=== PATIENT | female | born 1965 | race Caucasian/White ===

== ENCOUNTER 2017-07-28 14:01 | Outpatient (CLI) | payer MEDICARE ==
[2016-02-13 17:12] VITALS: BP 133/86
[2017-07-28 14:18] LABS: BASOPHILS % 1.1 (0.0-1.5); EOSINOPHILS % 4.1 % (0.0-6.8); MEAN CORPUSCULAR HEMOGLOBIN 28.7 pg (28.0-34.0); NEUTROPHILS # 3.7 # k/uL (1.4-7.7)
[2017-07-28 14:50] LABS: eGFR (African) > 60; eGFR (Non-African) > 60
== END 2017-07-28 14:03 ==
LOC: LAB 14:01
PROVIDERS: ATTEND Family Medicine
DX: R10.84 Generalized abdominal pain (principal)
CPT/HCPCS: 36415; 80053; 85025

== ENCOUNTER 2017-12-20 10:15 | Outpatient (CLI) | payer MEDICARE ==
[2016-02-13 17:12] VITALS: BP 133/86
--- NOTE | 2017-12-20 11:46 | Diagnostic Imaging Report ---
ALEJANDRA SHAY [facility] [address] [facility] [address] [address] Report Submission Date: Dec 20, 2017 11:33:15 AM CDT Patient Study Name: MARY BETH IRENE Date: Dec 20, 2017 11:01:46 AM CDT Modality Type: DX Gender: F Description: SPINE : 61 Institution: [facility] Physician: ALEJANDRA SHAY Examination: Plain film lumbar spine History: LOW BACK PAIN (Hx) Findings: 3 views of the lumbar spine demonstrate normal height. No anterior compression. Lower facet degenerative changes. No soft tissue abnormalities. Impression: Degenerative changes. No compression deformity. If patient is experiencing neurologic symptoms, consider obtaining MRI to further evaluate. Electronically signed on Dec 20, 2017 11:33:15 AM CDT by: Mundo BAZAN
== END 2017-12-20 10:16 ==
LOC: LAB 10:15
PROVIDERS: ATTEND Family Medicine
DX: M54.42 Lumbago with sciatica, left side (principal); R10.2 Pelvic and perineal pain
CPT/HCPCS: 72100; 87086

== ENCOUNTER 2017-12-24 18:51 | Emergency (ER) | payer MEDICARE ==
[2017-12-24] MEDS ORDERED: AMOXICILLIN 500 MG CAPSULE PO ONE (19:20)
[2017-12-24 19:25] VITALS: BP 141/79
--- NOTE | 2017-12-24 19:32 | ED Physician Documentation ---
General Adult - HISTORIAN Historian: patient - HPI Stated Complaint: sore throat Chief Complaint: General Adult Additional Information: Sore throat since12/20. Occasional cough. No CASTELAN or nausea. "low grade temp." Worst sore throat she has ever had. - ROS CONST: fever - PAST HX Past History: other (MS) Allergies/Adverse Reactions: Allergies Allergy/AdvReac Type Severity Reaction Status Date / Time azithromycin AdvReac Unknown Diarrhea Verified 12/24/17 19:06 epinephrine AdvReac Unknown No Reaction Verified 12/24/17 19:06 Home Medications: Ambulatory Orders Medication Instructions Recorded Aspirin 81 mg PO DAILY 11/12/12 Sertraline HCl 50 mg PO DAILY 11/12/12 Gabapentin [Gabapentin] 600 mg PO DAILY 07/30/13 Omega3/Dha/Epa/Fish Oil/Vit D3 1 tab PO DAILY 07/30/13 [Fish Oil + Vitamin D-3 Softgel] Baclofen [Baclofen] 20 mg PO HS 11/18/15 Cholecalciferol (Vitamin D3) 2,000 unit PO DAILY av 02/10/17 [Vitamin D3] Coconut Oil 1,000 mg PO DAILY av 02/10/17 Levothyroxine Sodium 175 mcg PO DAILY u2 02/10/17 - SOCIAL HX Smoking History: non-smoker - FAMILY HX Family History: No - VITAL SIGNS Vital Signs: Vital Signs Temp Pulse Resp BP Pulse Ox 98.6 F 79 16 141/79 95 12/24/17 18:51 12/24/17 18:51 12/24/17 18:51 12/24/17 18:51 12/24/17 18:51 - REVIEWED ASSESSMENTS Nursing Assessment Reviewed: Yes Vitals Reviewed: Yes ED Results Lab/Radiology - Orders Orders: ED Orders Category Date Time Status Rapid Strep [GRP A STREP SCREEN] Stat Lab 12/24/17 Ordered Amoxicillin [Amoxil] Med 12/24/17 19:20 Discontinued 500 mg PO NOW ONE General Adult Physical Exam - PHYSICAL EXAM GENERAL APPEARANCE: mild distress EENT: eye inspection normal, TM's nml, pharyngeal erythema (slight exudate) NECK: normal inspection, other (tender to palpatio, L ant cerv lymphadenopathy) RESPIRATORY: no resp distress, breath sounds normal CVS: reg rate & rhythm BACK: normal inspection SKIN: warm/dry, normal color EXTREMITIES: normal range of motion (gair and stance) NEURO: CN's nml as tested, motor nml, sensation nml, cognition normal Discharge Clincal Impression: Sore throat Referrals: Salud Oconnell MD [Primary Care Provider] - 2 Days Condition: Fair Disposition: 01 HOME, SELF-CARE Decision to Admit: NO Decision Time: 19:30
== END 2017-12-24 19:30 | disposition home or self-care (01) ==
LOC: ED 18:51
DX: J02.9 Acute pharyngitis, unspecified (principal)
CPT/HCPCS: 87070; 87880; 99282

== ENCOUNTER 2018-08-11 05:05 | Inpatient (IN) | payer MEDICARE ==
[2018-08-11] MEDS ORDERED: ONDANSETRON HCL 4 MG TAB.RAPDIS PO ONE (05:58)
--- NOTE | 2018-08-11 05:59 | ED Physician Documentation ---
Abdominal Pain - HISTORIAN Historian: patient - HPI Stated Complaint: abd pain nausea Chief Complaint: Abdominal Pain Additonal Information: Patient presents with a 1 week history of epigastric pain and bloating. She states the pain increased through the night, migrating to included LLQ with associated nausea. Patient states she has had regular bowel movement with her last yesterday. She has MS and has been on a steroid taper. Patient states she normally get bloated with steroids, however, never has abdominal pain. She denies fever, chills, vomiting, blood in stools, chest pain or shortness of breath. Onset: days ago (10) Duration: constant Context: denies: out of country travel, bad food, recent trauma Severity: mild Quality: pain (01/10), aching, dull, cramping, sharp, stabbing, fullness Associated Symptoms: nausea. denies: fever, chills, vomiting, diarrhea, bloody stools, sweating Relieved by: supine - ROS CONST: no problems GI/: none. denies: problems urinating CVS/RESP: none EYES/ENT: none MS/SKIN/LYMPH: none NEURO/PSYCH: none - SOCIAL HX Smoking History: non-smoker Alcohol Use: none Drug Use: none - FAMILY HX Family History: none - PAST HX Past History: none Ischemic Bowel Risk Factors: none Other History: none, other (multiple sclerosis) Surgeries/Procedures: cholecystectomy, hysterectomy, cardiac stent Home Medications: Ambulatory Orders Medication Instructions Recorded Aspirin 81 mg PO DAILY 11/12/12 Sertraline HCl 50 mg PO DAILY 11/12/12 Gabapentin 600 mg PO BID 07/30/13 Omega3/Dha/Epa/Fish Oil/Vit D3 1 tab PO DAILY 07/30/13 [Fish Oil + Vitamin D-3 Softgel] Baclofen 20 mg PO HS 11/18/15 Levothyroxine Sodium 175 mcg PO DAILY u2 02/10/17 Baclofen 10 mg PO D 08/11/18 Cholecalciferol [Vitamin D-3] 1,000 mg PO D 08/11/18 Ranitidine HCl [Heartburn Relief] 150 mg PO BID 08/11/18 Allergies/Adverse Reactions: Allergies Allergy/AdvReac Type Severity Reaction Status Date / Time azithromycin AdvReac Unknown Diarrhea Verified 08/11/18 06:26 epinephrine AdvReac Unknown No Reaction Verified 08/11/18 06:26 - VITAL SIGNS Vital Signs: Vital Signs Temp Pulse Resp BP Pulse Ox 97.8 F 67 18 135/77 97 08/11/18 05:10 08/11/18 05:10 08/11/18 05:10 08/11/18 05:10 08/11/18 05:10 - REVIEWED ASSESSMENTS Nursing Assessment Reviewed: Yes Vitals Reviewed: Yes ED Results Lab/Radiology - Lab Results Lab Results: Lab Results 08/11/18 08/11/18 08/11/18 06:01 06:01 06:01 WBC 14.60 K/ul H K/ul (4.00-12.00) RBC 4.71 M/ul M/ul (3.90-5.20) Hgb 12.9 g/dL g/dL (12.0-16.0) Hct 40.3 % % (34.5-46.5) MCV 86.0 fl fl (80.0-100.0) MCH 27.3 pg L pg (28.0-34.0) MCHC 31.9 g/dL g/dL (30.0-36.0) RDW 13.6 % % (11.3-14.3) Plt Count 248 K/mm3 K/mm3 (130-400) Neut % (Auto) 76.4 % % (39.0-79.0) Lymph % (Auto) 15.1 % L % (16.0-50.0) [place] % (Auto) 6.6 % % (0.0-11.0) Eos % (Auto) 1.4 % % (0.0-6.8) Baso % (Auto) 0.5 (0.0-1.5) Neut # (Auto) 11.2 # k/uL H # k/uL (1.4-7.7) Lymph # (Auto) 2.2 # k/uL # k/uL (0.6-4.0) [place] # (Auto) 1.0 # k/uL H # k/uL (0.0-0.9) Eos # (Auto) 0.2 # k/uL # k/uL (0.0-0.6) Baso # (Auto) 0.1 # k/uL # k/uL (0.0-0.5) Sodium 141 mmol/L mmol/L (136-145) Potassium 4.0 mmol/L mmol/L (3.5-5.1) Chloride 104 mmol/L mmol/L (98-107) Carbon Dioxide 30 mmol/L mmol/L (22-30) BUN 28 mg/dL H mg/dL (7-17) Creatinine 0.70 mg/dL mg/dL (0.52-1.04) Estimated Creat Clear 145 Est GFR ( Amer) > 60 (60 - ) Est GFR (Non-Af Amer) > 60 (60 - ) Glucose 85 mg/dL mg/dL (74-106) Calcium 8.2 mg/dL L mg/dL (8.4-10.2) Total Bilirubin 0.2 mg/dL mg/dL (0.2-1.3) AST 17 U/L U/L (15-46) ALT 84 U/L H U/L (13-69) Alkaline Phosphatase 64 U/L U/L (38-126) Total Protein 6.3 g/dL g/dL (6.3-8.2) Albumin 3.3 g/dL L g/dL (3.5-5.0) Lipase 505 U/L H U/L (23-300) UA negative for infection. - Radiology Radiology Impressions: CT abdomen and pelvis with contrast Date of study: August 11, 2018 CLINICAL HISTORY: DIFFUSE ABD PAIN X1 WEEK, NAUSEA (Hx) / ITS.REASON epigastric, LLQ pain Note time : 08/11/2018 7:48:24 AM User : Bianka Negrete DIFFUSE ABD PAIN X1 WEEK, NAUSEA (DICOM Hx) TECHNIQUE: 5 mm contiguous axial images of the abdomen and pelvis with IV contrast. With; 94mL's Omni 350 FINDINGS: Fatty change in the liver. Appendix congestion is present in the lungs. The heart is enlarged. The spleen shows a 1.8 cm hypodensity possibly a small infarct.. There is no adrenal or pancreas lesion. The kidneys enhance normally. The aorta is not dilated. There is a normal appendix. The uterus has been removed. The bladder is unremarkable. There is aortoiliac vascular calcification. The celiac axis stenosis is present. 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 Electronically signed on Aug 11, 2018 7:07:08 AM AUTOMATION DESIGN ENGINEER by: Brennon Lott - Orders Orders: ED Orders Category Date Time Status Place IV Lock 1T Care 08/11/18 05:[address] ABD & PELVIS W/ CON Stat Exams 08/11/18 06:30 Completed CBC/PLATELET/DIFF Routine Lab 08/11/18 06:01 Completed CMP Routine Lab 08/11/18 06:01 Completed LIPASE Stat Lab 08/11/18 06:01 Completed 0.9 % Sodium Chloride [Normal Saline] 1,000 ml Med 08/11/18 07:30 Ordered IV Q10H Ondansetron HCl Rapdis [Zofran Odt] Med 08/11/18 05:58 Discontinued 4 mg PO NOW ONE Ondansetron HCl/Pf [Zofran 4 mg/2 ml] Med 08/11/18 06:09 Discontinued 4 mg IVP NOW ONE Abdominal Pain Physical Exam - Physical Exam General Appearance: no acute distress, alert EENT: APLLAVI NECK: supple RESPIRATORY: no resp distress, breath sounds normal CVS: reg rate & rhythm, heart sounds normal ABDOMEN: soft, tenderness (epigastric, LLQ), distended RECTAL: deferred SKIN: warm/dry, normal color EXTREMITIES: no edema NEURO: oriented X3 Vital Signs: Vital Signs Temp Pulse Resp BP Pulse Ox 97.8 F 67 18 135/77 97 08/11/18 05:10 08/11/18 05:10 08/11/18 05:10 08/11/18 05:10 08/11/18 05:10 Discharge Clincal Impression: Acute pancreatitis Qualifiers: Pancreatitis type: drug induced Acute pancreatitis complication: no infection or necrosis Qualified Code(s): K85.30 - Drug induced acute pancreatitis without necrosis or infection Disposition: ADMITTED INPATIENT Decision to Admit: [id number] Date of Decison to Admit: 08/11/18 Decision Time: 07:14
[2018-08-11 06:09] LABS: MEAN CORPUSCULAR HEMOGLOBIN 27.3 pg (28.0-34.0)
[2018-08-11] MEDS ORDERED: ONDANSETRON HCL/PF 4 MG/ 2ML VIAL IVP ONE (06:09)
[2018-08-11 06:26] LABS: eGFR (Non-African) > 60
--- NOTE | 2018-08-11 07:19 | Diagnostic Imaging Report ---
KIT BARRETT [facility] [address] [facility] [address] [place], [place]. [address] Report Submission Date: Aug 11, 2018 7:07:08 AM BILINGUAL CUSTOMER SERVICE SPECIALIST Patient Study Name: MARY BETH IRENE Date: Aug 11, 2018 6:37:05 AM BILINGUAL CUSTOMER SERVICE SPECIALIST Modality Type: CT\SR Gender: F Description: CT ABD PELVIS W/ CON : 61 Institution: [facility] Physician: KIT BARRETT CT abdomen and pelvis with contrast Date of study: August 11, 2018 CLINICAL HISTORY: DIFFUSE ABD PAIN X1 WEEK, NAUSEA (Hx) / ITS.REASON epigastric, LLQ pain Note time : 08/11/2018 7:48:24 AM User : Bianka Negrete DIFFUSE ABD PAIN X1 WEEK, NAUSEA (DICOM Hx) TECHNIQUE: 5 mm contiguous axial images of the abdomen and pelvis with IV contrast. With; 94mL's Omni 350 FINDINGS: Fatty change in the liver. Appendix congestion is present in the lungs. The heart is enlarged. The spleen shows a 1.8 cm hypodensity possibly a small infarct.. There is no adrenal or pancreas lesion. The kidneys enhance normally. The aorta is not dilated. There is a normal appendix. The uterus has been removed. The bladder is unremarkable. There is aortoiliac vascular calcification. The celiac axis stenosis is present. 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
[2018-08-11] MEDS ORDERED: MORPHINE SULFATE 4 MG/ML PREFILLED SYR IVP PRN (07:50)
[2018-08-11] MEDS ORDERED: ONDANSETRON HCL/PF 4 MG/ 2ML VIAL IVP PRN (07:50)
[2018-08-11] MEDS ORDERED: BISACODYL 5 MG TABLET.DR PO PRN (07:51)
[2018-08-11] MEDS ORDERED: DOCUSATE SODIUM 100 MG CAPSULE PO PRN (07:51)
[2018-08-11] MEDS ORDERED: MAG HYDROX/ALUMINUM HYD/SIMETH 30 ML UDC PO PRN (07:53)
[2018-08-11] MEDS ORDERED: ACETAMINOPHEN 500 MG TABLET PO PRN (07:53)
[2018-08-11 08:36] LABS: BASOPHILS % 0 % (0-2); EOSINOPHILS % 0 % (0-7); MONOCYTES % 4 % (0-11); SEGMENTED NEUTROPHILS % 69 % (39-79)
--- NOTE | 2018-08-11 08:36 | History and Physical Report ---
History of Present Illnes - History of Present Illness Reason for Visit: Pancreatitis History of Present Illness: 53 year old female presented to the ER for abdominal pain. She states she has been feeling bloated and having some mild upper abdominal pain for the last 2 weeks. She states in the last 2 days the pain has become more severe. She sates she has been having a lot of nausea but has not eaten. She denies any constipation. She does not believe she has had a fever. She has not been able to eat for the last couple of days. She has been trying to drink fluids but they area also making her feels sick. She notes a history of MS and is currently on a prednisone taper for her MS symptoms. She states she has had some bloating when she has been on the steroids in the past but has never had abdominal pl pain with it. She states she has been feeling well otherwise and denies any s ore throat, runny nose, chest pain, shortness of breath, or other concerns today. In the ER she was found to have an elevated lipase of 505 and an elevated WBC count of 14.5. She was admitted to the floor for IV fluids and pain medication. - Past Medical History Cardiac: CAD RUBBER FACTORY WORKER: Peripheral neuropathy, Other (MS) - Past Surgical History Past Surgical History: Cholecystectomy, Hysterectomy, Other (cervical fusion, cardiac stenting, right knee surgery, melanoma inner thigh) - Past Social History Smoke: No Alcohol: Rare Lives: With Family () - Health Maintenance Health Maintenance: denies: Influenza Vaccine, Pneumococcal Vaccine Influenza Vaccine: No (Patient declines) Pneumonia Vaccine: No Resuscitation Status: Resusciation Status Resuscitation Status Full Code Review of Systems - Review of Systems Constitutional: Malaise. negative: Fever Eyes: negative: pain, vision change ENT: negative: Ear Pain, Nose Pain, Nose Discharge, Nose Congestion, Mouth Pain, Throat Pain Respiratory: negative: Cough, Dry, Shortness of Breath Cardiovascular: negative: Chest Pain Gastrointestinal: Nausea, Abdominal Pain Genitourinary: negative: Dysuria Musculoskeletal: negative: Shoulder Pain, Arm Pain, Back Pain Skin: negative: Rash Neurological: Other (Melanoma) - Medications/Allergies Allergies/Adverse Reactions: Allergies Allergy/AdvReac Type Severity Reaction Status Date / Time azithromycin AdvReac Unknown Diarrhea Verified 08/11/18 06:26 epinephrine AdvReac Unknown No Reaction Verified 08/11/18 06:26 Home Medications: Home Medications Baclofen 10 mg PO D 11/09/18 Cholecalciferol [Vitamin D-3] 1,000 mg PO D 08/11/18 Ranitidine HCl [Heartburn Relief] 150 mg PO BID 08/11/18 Current Inpatient Medications: Current Inpatient Medications Acetaminophen (Tylenol Extra Strength) 500 mg PO TID PRN PRN Reason: Fever >101 Aspirin (Aspirin) 81 mg PO DAILY [facility] Baclofen (Lioresal) 10 mg PO D [facility]AE Baclofen (Lioresal) 20 mg PO HS [facility] Bisacodyl (Dulcolax) 5 mg PO DAILY PRN PRN Reason: Constipation Cholecalciferol (Vitamin D-3) unit PO D [facility] Docusate Sodium (Colace) 200 mg PO DAILY PRN PRN Reason: Constipation Enoxaparin Sodium (Lovenox) 30 mg SQ QD [facility] Stop: 08/24/18 08:01 Famotidine (Pepcid) 20 mg PO BID [facility] Gabapentin (Neurontin) 600 mg PO BID [facility] Sodium Chloride (Normal Saline) 1,000 mls @ 100 mls/hr IV Q10H [facility] Levothyroxine Sodium (Synthroid) 175 mcg PO 0700 [facility] Morphine Sulfate (Depodur) 4 mg IVP Q6 PRN PRN Reason: Severe Pain Ondansetron HCl (Zofran 4 Mg/2 Ml) 4 mg IVP Q6H PRN PRN Reason: Nausea / Vomiting Sertraline HCl (Zoloft) 50 mg PO DAILY [facility] Simethicone (Gas-X) 80 mg PO TID [facility] Exam - Exam Vital Signs: Vital Signs (72 hours) 08/11/18 05:10 Temperature 97.8 F Pulse Rate [ 67 Pulse ox] Respiratory 18 Rate Blood Pressure 135/77 [Left Arm] O2 Sat by Pulse 97 Oximetry General: Alert, Oriented to Person, Oriented to Place, Oriented to Time, Cooperative, Mild distress, Obese HEENT: Atraumatic, EOMI, Mouth Mucous membr. moist/[place] Neck: Normal Range of Motion Lungs: Clear to auscultation, Normal air movement, Speaks full Sentences Cardiovascular: Regular rate, No murmurs Abdomen: Soft, Hyperactive Bowel Sounds. No: No tenderness (Generalized tenderness worse in epigastrum) Integumentary: Normal, [place], Warm, Dry Extremities: No edema, No tenderness/swelling Neurological: Normal gait, Normal speech Psych/Mental Status: Mental status NL, Mood NL, Appropriate Affect, Intact Judgment - Laboratory Results Laboratory Results: Laboratory Results 08/11/18 08/11/18 08/11/18 06:01 06:01 06:01 WBC 14.60 H RBC 4.71 Hgb 12.9 Hct 40.3 MCV 86.0 MCH 27.3 L MCHC 31.9 RDW 13.6 Plt Count 248 Neut % (Auto) 76.4 Lymph % (Auto) 15.1 L [place] % (Auto) 6.6 Eos % (Auto) 1.4 Baso % (Auto) 0.5 Neut # (Auto) 11.2 H Lymph # (Auto) 2.2 [place] # (Auto) 1.0 H Eos # (Auto) 0.2 Baso # (Auto) 0.1 Sodium 141 Potassium 4.0 Chloride 104 Carbon Dioxide 30 BUN 28 H Creatinine 0.70 Estimated Creat Clear 145 Est GFR ( Amer) > 60 Est GFR (Non-Af Amer) > 60 Glucose 85 Calcium 8.2 L Total Bilirubin 0.2 AST 17 ALT 84 H Alkaline Phosphatase 64 Total Protein 6.3 Albumin 3.3 L Lipase 505 H Assessment/Plan - Assessment/Plan (1) Acute pancreatitis Status: Acute Current Visit: Yes Qualifiers: Qualified Code(s): K85.30 - Drug induced acute pancreatitis without necrosis or infection Assessment: Lipase elevated at 505. WBC count elevated at 14.9. Patient reports abdominal pain, bloating, nausea, and malaise. Abdomen has generalized tenderness with extreme tenderness to palpation of the epigastrum. Patient is afebrile. She states she has not eaten today. Plan: Patient will remain NPO. IV fluids started. IV pain medication ordered. Will monitor labs in the morning. VTE Assessment - RISK FACTOR SCORE VTE RISK FACTOR SCORES: AGE 40-60 YEARS, ACUTE INFECTION OTHER THEN SEPSIS - RISK VTE MODERATE RISK: SCORE OF 2 (RISK PROXIMAL DVT 2-4%) PROPHYAXIS NEEDED
[2018-08-11 08:37] LABS: HYPERSEGMENTED NEUTROPHILS PRESENT; SMUDGE CELLS 2 #PER 100 (0-0)
[2018-08-11] MEDS ORDERED: GABAPENTIN 300 MG CAPSULE PO SCH (09:00)
[2018-08-11] MEDS ORDERED: BACLOFEN 10 MG TABLET PO SCH (09:00)
[2018-08-11] MEDS ORDERED: ASPIRIN EC 81 MG TABLET.DR ONE (10:21)
[2018-08-11] MEDS: HYDROcodone /APAP 5/325 1 EACH TABLET PO PRN ×3 (10:34→20:47)
[2018-08-11] MEDS: SIMETHICONE 80 MG TAB.CHEW PO SCH ×3 (10:34→18:15)
[2018-08-11] MEDS: SERTRALINE HCL 50 MG TABLET PO SCH (10:34)
[2018-08-11] MEDS: ENOXAPARIN SODIUM 30 MG/0.3 ML DISP.SYRIN SQ SCH (10:34)
[2018-08-11 10:35] VITALS: BMI 35.1
[2018-08-11] MEDS: ASPIRIN 81 MG CHEW TAB PO SCH (10:35)
[2018-08-11] MEDS: FAMOTIDINE 20 MG TABLET PO SCH ×2 (10:35→20:47)
[2018-08-11] MEDS: 0.9 % SODIUM CHLORIDE 1,000 ML IV SCH ×2 (10:46→18:16)
[2018-08-11 14:01] LABS: APPEARANCE,URINE CLEAR (CLEAR); COLOR,URINE YELLOW (YELLOW); OCCULT BLOOD,URINE NEGATIVE (NEGATIVE)
[2018-08-11 14:02] LABS: UROBILINOGEN URINE 0.2 Eu (0.2-1.0)
[2018-08-11] MEDS: CHOLECALCIFEROL (VIT D3) 1,000 UNIT TABLET PO SCH (14:08)
[2018-08-11] MEDS: BACLOFEN 10 MG TABLET PO SCH (20:47)
[2018-08-11] MEDS: GABAPENTIN 300 MG CAPSULE PO SCH (20:47)
[2018-08-11] MEDS ORDERED: LEVOTHYROXINE SODIUM 50 MCG TABLET ONE (21:29)
[2018-08-11] MEDS ORDERED: LEVOTHYROXINE SODIUM 50 MCG TABLET PO SCH (23:00)
[2018-08-12] MEDS: 0.9 % SODIUM CHLORIDE 1,000 ML IV SCH ×2 (03:45→13:55)
[2018-08-12] MEDS: HYDROcodone /APAP 5/325 1 EACH TABLET PO PRN ×2 (03:45→20:16)
[2018-08-12] MEDS: LEVOTHYROXINE SODIUM 50 MCG TABLET PO SCH (06:47)
[2018-08-12] MEDS ORDERED: LEVOTHYROXINE SODIUM 100 MCG TABLET PO SCH (07:00)
[2018-08-12 07:35] LABS: BASOPHILS % 0.4 (0.0-1.5); MEAN CORPUSCULAR HEMOGLOBIN 27.3 pg (28.0-34.0); MONOCYTES % 4.3 % (0.0-11.0); NEUTROPHILS # 7.5 # k/uL (1.4-7.7)
[2018-08-12 07:36] LABS: eGFR (Non-African) > 60
[2018-08-12] MEDS: ENOXAPARIN SODIUM 30 MG/0.3 ML DISP.SYRIN SQ SCH (08:05)
[2018-08-12] MEDS: ASPIRIN 81 MG CHEW TAB PO SCH (08:05)
[2018-08-12] MEDS: SIMETHICONE 80 MG TAB.CHEW PO SCH ×3 (08:05→17:10)
[2018-08-12] MEDS: SERTRALINE HCL 50 MG TABLET PO SCH (08:06)
[2018-08-12] MEDS: CHOLECALCIFEROL (VIT D3) 1,000 UNIT TABLET PO SCH (08:06)
[2018-08-12] MEDS: FAMOTIDINE 20 MG TABLET PO SCH ×2 (08:08→20:16)
--- NOTE | 2018-08-12 11:43 | Inpatient Progress Note ---
Subjective - Required Recertification Statement I anticipate X number of days because-include discharge plan: 2 - Review of Systems Events since last encounter: The patient was admitted to the floor. She was kept NPO since admission. She was started on IV fluids for mild dehydration. She states she is feeling a lot better. She notes she is still having some mild intermittent nausea but reports it has improved significantly. She states her abdominal pain has improved a lot as well. She states she her abdomen is still sore to push on but when she is just sitting there her pain is a 1-2. She states she has not needed the IV medication as much today and states the PO med is helping for the most part. She states she is feeling a little more hungry and would like to try to advance her diet. She denies any new symptoms. She denies any chest pain, shortness of breath, fever, chills, nausea, vomiting, or other concerns today. General: Fatigue. Denies: Chills HEENT: Denies: Head Aches, Visual Changes Pulmonary: Denies: Dyspnea, Cough Cardiovascular: Denies: Chest Pain, Palpitations Gastrointestinal: Nausea (mild), Abdominal Pain (mild - much improved). Denies: Vomiting, Diarrhea, Constipation Genitourinary: Denies: Dysuria Musculoskeletal: Denies: Back Pain, Leg Pain Neurological: Denies: Weakness, Change in Speech Objective - Exam Vitals and I&O: Vital Signs Temp 97.7 F 08/12/18 09:45 Pulse 51 L 08/12/18 09:45 Resp 16 08/12/18 09:45 BP 108/57 08/12/18 09:45 Pulse Ox 94 08/12/18 09:45 Intake & Output 08/11/18 08/11/18 08/12/18 11:59 23:59 11:59 Intake Total 300 2640 1820 Balance 300 2640 1820 Weight 87.09 kg 86.183 kg Intake: IV 300 2600 1800 Right Antecubital 300 2600 1800 Oral 40 20 Other: # Voids 1 2 General: Alert, Oriented to Person, Oriented to Place, Oriented to Time, Cooperative, Obese HEENT: Atraumatic, EOMI Neck: Supple Lungs: Clear to auscultation, Normal air movement, Speaks full Sentences. No: Wheezes, Rhonchi Cardiovascular: Regular rate, No murmurs Abdomen: Normal bowel sounds, Soft. No: No tenderness (Epigastric and LUQ tenderness) Extremities: No edema, No tenderness/swelling Skin: Normal Neurological: Normal gait, Normal speech, Strength Equal Bilat, Normal tone, Sensation intact Psych/Mental Status: Mental status NL, Mood NL, Appropriate Affect, Intact Judgment - Results Results: Laboratory Results WBC 10.70 K/ul (4.00-12.00) 08/12/18 05:00 RBC 4.29 M/ul (3.90-5.20) 08/12/18 05:00 Hgb 11.7 g/dL (12.0-16.0) L 08/12/18 05:00 Hct 36.5 % (34.5-46.5) 08/12/18 05:00 MCV 85.0 fl (80.0-100.0) 08/12/18 05:00 MCH 27.3 pg (28.0-34.0) L 08/12/18 05:00 MCHC 32.1 g/dL (30.0-36.0) 08/12/18 05:00 RDW 13.8 % (11.3-14.3) 08/12/18 05:00 Plt Count 232 K/mm3 (130-400) 08/12/18 05:00 Neut % (Auto) 69.7 % (39.0-79.0) 08/12/18 05:00 Lymph % (Auto) 21.6 % (16.0-50.0) 08/12/18 05:00 Lane % (Auto) 4.3 % (0.0-11.0) 08/12/18 05:00 Eos % (Auto) 4.0 % (0.0-6.8) 08/12/18 05:00 Baso % (Auto) 0.4 (0.0-1.5) 08/12/18 05:00 Neut # (Auto) 7.5 # k/uL (1.4-7.7) 08/12/18 05:00 Lymph # (Auto) 2.3 # k/uL (0.6-4.0) 08/12/18 05:00 Lane # (Auto) 0.5 # k/uL (0.0-0.9) 08/12/18 05:00 Eos # (Auto) 0.4 # k/uL (0.0-0.6) 08/12/18 05:00 Baso # (Auto) 0.0 # k/uL (0.0-0.5) 08/12/18 05:00 Seg Neutrophils % 69 % (39-79) 08/11/18 06:01 Band Neutrophils % 1 % (0-12) 08/11/18 06:01 Lymphocytes % 14 % (16-50) L 08/11/18 06:01 Monocytes % 4 % (0-11) 08/11/18 06:01 Eosinophils % 0 % (0-7) 08/11/18 06:01 Basophils % 0 % (0-2) 08/11/18 06:01 Metamyelocytes % 0 % (0-0) 08/11/18 06:01 Myelocytes % 0 % (0-0) 08/11/18 06:01 Hypersegmented Neuts Present 08/11/18 06:01 Reactive Lymphocytes 12 % (0-5) H 08/11/18 06:01 Smudge Cells 2 #PER 100 (0-0) H 08/11/18 06:01 Sodium 142 mmol/L (136-145) 08/12/18 05:00 Potassium 4.0 mmol/L (3.5-5.1) 08/12/18 05:00 Chloride 108 mmol/L (98-107) H 08/12/18 05:00 Carbon Dioxide 28 mmol/L (22-30) 08/12/18 05:00 BUN 20 mg/dL (7-17) H 08/12/18 05:00 Creatinine 0.60 mg/dL (0.52-1.04) 08/12/18 05:00 Estimated Creat Clear 169 08/12/18 05:00 Est GFR ( Amer) > 60 (60-) 08/12/18 05:00 Est GFR (Non-Af Amer) > 60 (60-) 08/12/18 05:00 Glucose 70 mg/dL (74-106) L 08/12/18 05:00 Calcium 7.5 mg/dL (8.4-10.2) L 08/12/18 05:00 Total Bilirubin 0.5 mg/dL (0.2-1.3) 08/12/18 05:00 AST 20 U/L (15-46) 08/12/18 05:00 ALT 76 U/L (13-69) H 08/12/18 05:00 Alkaline Phosphatase 66 U/L (38-126) 08/12/18 05:00 Total Protein 5.6 g/dL (6.3-8.2) L 08/12/18 05:00 Albumin 2.8 g/dL (3.5-5.0) L 08/12/18 05:00 Lipase 142 U/L (23-300) 08/12/18 05:00 Urine Color Yellow (YELLOW) 08/11/18 05:20 Urine Appearance Clear (CLEAR) 08/11/18 05:20 Urine pH 7.0 (5.0 - 8.0) 08/11/18 05:20 Ur Specific [place] 1.020 (1.010-1.030) 08/11/18 05:20 Urine Protein Negative mg/dL (NEGATIVE) 08/11/18 05:20 Urine Ketones Negative mg/dL (NEGATIVE) 08/11/18 05:20 Urine Occult Blood Negative (NEGATIVE) 08/11/18 05:20 Urine Nitrite Negative (NEGATIVE) 08/11/18 05:20 Urine Bilirubin Negative (NEGATIVE) 08/11/18 05:20 Urine Urobilinogen 0.2 Eu (0.2-1.0) 08/11/18 05:20 Ur Leukocyte Esterase Negative (NEGATIVE) 08/11/18 05:20 Urine Glucose Negative mg/dL (NEGATIVE) 08/11/18 05:20 Assessment/Plan - Assessment/Plan (1) Acute pancreatitis Status: Acute Current Visit: Yes Qualifiers: Qualified Code(s): K85.30 - Drug induced acute pancreatitis without necrosis or infection Assessment: Patient's symptoms are improving. 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 Her WBC count has returned to normal and mild dehydration is improved with IV fluids. Plan: Per patient's request we will try to advance her diet to clear liquids for dinner this evening and see how it goes. Will hold IV pain medications in favor of PO meds to see if patient's meds can be down graded for possible discharge tomorrow.
[2018-08-12] MEDS: BACLOFEN 10 MG TABLET PO SCH (20:16)
[2018-08-12] MEDS: GABAPENTIN 300 MG CAPSULE PO SCH (20:16)
[2018-08-13] MEDS: 0.9 % SODIUM CHLORIDE 1,000 ML IV SCH ×2 (00:15→09:13)
[2018-08-13] MEDS: LEVOTHYROXINE SODIUM 50 MCG TABLET PO SCH (05:59)
[2018-08-13 07:41] LABS: eGFR (Non-African) > 60
[2018-08-13 07:42] LABS: BASOPHILS % 0.4 (0.0-1.5); EOSINOPHILS % 4.5 % (0.0-6.8); MEAN CORPUSCULAR HEMOGLOBIN 27.7 pg (28.0-34.0); MONOCYTES % 5.1 % (0.0-11.0)
[2018-08-13] MEDS: ASPIRIN 81 MG CHEW TAB PO SCH (09:14)
[2018-08-13] MEDS: FAMOTIDINE 20 MG TABLET PO SCH (09:14)
[2018-08-13] MEDS: ENOXAPARIN SODIUM 30 MG/0.3 ML DISP.SYRIN SQ SCH (09:14)
[2018-08-13] MEDS: SIMETHICONE 80 MG TAB.CHEW PO SCH (09:14)
[2018-08-13] MEDS: CHOLECALCIFEROL (VIT D3) 1,000 UNIT TABLET PO SCH (09:14)
[2018-08-13] MEDS: SERTRALINE HCL 50 MG TABLET PO SCH (09:14)
--- NOTE | 2018-08-13 10:40 | Discharge Summary ---
Discharge Summary - Discharge Sumary History of Present Illness: Amairani is a 53 year old female that was admitted to the hospital for acute pancreatitis. She was kept NPO for the first 24 hours and was given IV fluids. Her diet was advanced to clear liquids for dinner last night and full liquids this morning for breakfast. She was able to eat without discomfort and without vomiting. She notes since breakfast she did try to drink some coffee which made her extremely nauseous and made her abdomen hurt more than it was. She states she is feeling much much better than when she came in. She states she states she feels ready to go home and notes she will be very careful with her diet for the next few days. She has continued to take the hydrocodone orally for pain for the last 24 hours when needed. She denies any chest pain, shortness of breath, fever, chills, sore throat, vomiting, or diarrhea. Exam: General: well nourished 53 year old female HEENT: EOMs intact, normal dentition, no nasal drainage Cardiac: RRR Resp: CTA, speaks in full sentences Abdomen: bowel sounds normal, abdomen is soft and is not distended, mild tenderness to palpation of the epigastrium Extremities: Normal gait, no edema, no tenderness Additional Instructions: Patient was instructed to advance diet slowly with bland foods. She is to avoid spicy and greasy food for the next couple of weeks. Condition at Discharge: Stable Home Medications: Ambulatory Orders Medication Instructions Recorded Aspirin 81 mg PO DAILY 11/12/12 Sertraline HCl 50 mg PO DAILY 11/12/12 Gabapentin 600 mg PO BID 07/30/13 Omega3/Dha/Epa/Fish Oil/Vit D3 1 tab PO DAILY 07/30/13 [Fish Oil + Vitamin D-3 Softgel] Baclofen 20 mg PO HS 11/18/15 Levothyroxine Sodium 175 mcg PO DAILY u2 02/10/17 Baclofen 10 mg PO D 08/11/18 Cholecalciferol [Vitamin D-3] 1,000 mg PO D 08/11/18 Ranitidine HCl [Heartburn Relief] 150 mg PO BID 08/11/18 Acetaminophen [Tylenol Extra 500 mg PO TID PRN tablet 08/13/18 Strength] Famotidine [Pepcid] 20 mg PO BID #60 tablet 08/13/18 HYDROcodone /APAP 5/325 [[place] 1 each PO Q4 PRN #20 tablet 08/13/18 5/325] Consultations this Visit: None Procedures this Visit: None Allergies/Adverse Reactions: Allergies Allergy/AdvReac Type Severity Reaction Status Date / Time azithromycin AdvReac Unknown Diarrhea Verified 08/11/18 06:26 epinephrine AdvReac Unknown No Reaction Verified 08/11/18 06:26 Discharge Summary: Patient will be discharged to home to follow up with Dr. Oconnell in clinic this coming week. Her lipase has returned to normal today and her WBC count is WNL as well. She will be discharged with a short supply of hydrocodone for pain as needed. He is to advance diet very slowly and avoid spicy or greasy foods. - Final Diagnosis (1) Acute pancreatitis Problems: Advance diet slowly, starting with liquids and bland foods. Avoid spicy and greasy foods. Hydrocodone for pain. Resume ranitidine as a home med. GasX as needed for bloating. Follow up with Dr. Oconnell this week in clinic.
[2018-08-13 11:42] VITALS: BP 132/74
== END 2018-08-13 11:40 | disposition home or self-care (01) | DRG 440 ==
LOC: ED 05:05 → SOUTH 07:36
PROVIDERS: ADMIT Physician Assistant; ATTEND Family Medicine
DX: K85.30 Drug induced acute pancreatitis without necrosis or infection (principal); G35 Multiple sclerosis; G62.9 Polyneuropathy, unspecified
CPT/HCPCS: 74177; 80053; 81002; 83690; 85025; A9270; J1650; J2270; J2405; J7030; Q9967; 96374; 99222; 99231; 99238; S1016

== ENCOUNTER 2018-10-23 18:05 | Emergency (ER) | payer MEDICARE ==
--- NOTE | 2018-10-23 18:25 | ED Physician Documentation ---
Female Urogenital Problems - HISTORIAN Historian: patient - HPI Stated Complaint: Painful Urination Chief Complaint: Female Urogenital Problems Onset: days ago (x 2 days ago) Severity: mild Location of Pain: flank pain (right sided) Further Comments: no - Associated Symptoms Urinary Symptoms: blood in urine (noticed blood when she wipes), frequent urination, burning w/ urination Discharge: denies: vaginal discharge - ROS CONST: fever, chills (started today) GI/: nausea. denies: vomiting, diarrhea CVS/RESP: none NEURO/PSYCH: none MS/SKIN/LYMPH: none - PAST HX Past History: none Other History: bladder infection, other (MS) Surgeries/Procedures: hysterectomy, cholecystectomy, other (breast reduction, stents) Immunizations: UTD Allergies/Adverse Reactions: Allergies Allergy/AdvReac Type Severity Reaction Status Date / Time azithromycin AdvReac Unknown Diarrhea Verified 10/23/18 18:50 epinephrine AdvReac Unknown No Reaction Verified 10/23/18 18:50 Home Medications: Ambulatory Orders Medication Instructions Recorded Aspirin 81 mg PO DAILY 11/12/12 Sertraline HCl 50 mg PO DAILY 11/12/12 Gabapentin 600 mg PO BID 07/30/13 Omega3/Dha/Epa/Fish Oil/Vit D3 1 tab PO DAILY 07/30/13 [Fish Oil + Vitamin D-3 Softgel] Baclofen 20 mg PO HS 11/18/15 Levothyroxine Sodium 175 mcg PO DAILY u2 02/10/17 Baclofen 10 mg PO D 08/11/18 Cholecalciferol [Vitamin D-3] 1,000 mg PO D 08/11/18 Ranitidine HCl [Heartburn Relief] 150 mg PO BID 08/11/18 Acetaminophen [Tylenol Extra 500 mg PO TID PRN tablet 08/13/18 Strength] Famotidine [Pepcid] 20 mg PO BID #60 tablet 08/13/18 HYDROcodone /APAP 5/325 [[place] 1 each PO Q4 PRN #20 tablet 08/13/18 5/325] Fluconazole [Diflucan] 150 mg PO TODAY #1 tablet 10/23/18 Sulfamethoxazole/Trimethoprim 1 each PO BID #14 tab 10/23/18 [Bactrim Ds] - SOCIAL HX Smoking History: non-smoker Alcohol Use: none Drug Use: none - FAMILY HX Family History: none - VITAL SIGNS Vital Signs: Vital Signs Temp Pulse Resp BP Pulse Ox 132/74 08/13/18 10:53 - REVIEWED ASSESSMENTS Nursing Assessment Reviewed: Yes Vitals Reviewed: Yes ED Results Lab/Radiology - Lab Results Lab Results: Urinalysis is negative Had lab look under microscope due to patient symptoms and he noted yeast and bacteria - Orders Orders: ED Orders Category Date Time Status URINALYSIS Routine Lab 10/23/18 18:19 Ordered Female Urogenital Problems - EXAM General Appearance: no acute distress, alert EENT: eye inspection normal, ENT inspection normal, pharynx normal, PALLAVI Neck: nml inspection Respiratory: no resp. distress, breath sounds nml CVS: reg rate & rhythm, heart sounds normal, equal pulses Abdomen: soft, non-tender, no distention, nml bowel sounds Rectal: deferred Back: non-tender Skin: color nml, no rash, warm,dry Extremities: normal range of motion Neuro: oriented X3, CN's nml as tested, motor nml, sensation nml, mood/affect nml Discharge Clincal Impression: UTI (urinary tract infection), Yeast infection Prescriptions: Fluconazole [Diflucan] 150 mg PO TODAY #1 tablet Sulfamethoxazole/Trimethoprim [Bactrim Ds] 1 each PO BID #14 tab Referrals: Salud Oconnell MD [Primary Care Provider] - 2 Days Additional Instructions: Take medications as directed Increase fluid intake (no caffeine) Condition: Good Disposition: 01 HOME, SELF-CARE Decision to Admit: NO Decision Time: 18:57
[2018-10-23 18:35] VITALS: BP 141/82
[2018-10-23 18:43] LABS: APPEARANCE,URINE CLOUDY (CLEAR); COLOR,URINE YELLOW (YELLOW)
[2018-10-23 18:44] LABS: OCCULT BLOOD,URINE NEGATIVE (NEGATIVE); PH URINE 5.5 (5.0 - 8.0); UROBILINOGEN URINE 0.2 Eu (0.2-1.0)
[2018-10-23 18:46] LABS: YEAST,URINE MODERATE (NEGATIVE)
== END 2018-10-23 18:57 | disposition home or self-care (01) ==
LOC: ED 18:05
DX: N39.0 Urinary tract infection, site not specified (principal); B37.9 Candidiasis, unspecified
CPT/HCPCS: 81002; 99282; 99283

== ENCOUNTER 2019-06-19 13:31 | Outpatient (CLI) | payer MEDICARE ==
[2019-04-30 12:29] VITALS: BP 134/66
[2019-06-19 14:06] LABS: eGFR (Non-African) > 60
== END 2019-06-19 13:33 ==
LOC: LAB 13:31
PROVIDERS: ATTEND Internal Medicine Cardiovascular Disease
DX: R06.02 Shortness of breath (principal)
CPT/HCPCS: 36415; 80048

== ENCOUNTER 2019-07-30 13:46 | Outpatient (CLI) | payer MEDICARE ==
[2019-04-30 12:29] VITALS: BP 134/66
[2019-07-30 14:13] LABS: BASOPHILS % 0.4 % (0.0-1.5); NEUTROPHILS # 3.6 # k/uL (1.4-7.7)
[2019-07-30 14:37] LABS: eGFR (Non-African) > 60
== END 2019-07-30 13:51 ==
LOC: LAB 13:46
PROVIDERS: ATTEND Internal Medicine Cardiovascular Disease
DX: I10 Essential (primary) hypertension (principal); I25.10 Atherosclerotic heart disease of native coronary artery without angina pectoris
CPT/HCPCS: 36415; 80048; 85025